=== PATIENT | male | born 1970 | race Caucasian/White ===

== ENCOUNTER 2016-09-25 21:50 | Emergency (ER) | payer OTHER ==
[~2016-09-25] VITALS: Ht 162.6 cm; Wt 79.1 kg
[~2016-09-25 21:50] MED LIST: MOTRIN600 MG PO; TORADOL10 MG PO; VICODIN 5-3001 EACH PO; ZOFRAN ODT4 MG PO
[2016-09-25 21:53] VITALS: BP 140/73
[2016-09-25] MEDS ORDERED: MOTRIN600 MG PO (22:20)
[2016-09-25] MEDS ORDERED: SKELAXIN800 MG PO (22:20)
== END 2016-09-25 22:28 | disposition home or self-care (01) ==
LOC: EME 21:50
DX: M62.830 Muscle spasm of back (principal)
CPT/HCPCS: 99281; 99283